=== PATIENT | female | born 1980 | race Caucasian/White ===

== ENCOUNTER 2018-04-28 17:26 | Emergency (ER) | payer SELFPAY ==
[~2018-04-28] VITALS: Ht 170.1 cm; Wt 77.1 kg
[2018-04-28 17:33] VITALS: BP 108/78
[2018-04-28] MEDS ORDERED: DOXYCYCLINE100 M3 PO ×2 (18:13→18:29)
== END 2018-04-28 18:14 | disposition home or self-care (01) ==
LOC: ED 17:26
DX: R21 Rash and other nonspecific skin eruption (principal)

== ENCOUNTER 2024-05-30 11:47 | Emergency (ER) | payer BC ==
[~2024-05-30] VITALS: Ht 167.6 cm; Wt 68.0 kg
[~2024-05-30 11:47] MED LIST: DOXYCYCLINE100 M3 PO
[2024-05-30 12:06] VITALS: BP 113/59
[2024-05-30] MEDS ORDERED: AMOX-CLAV 875-1 EACH PO (12:24)
[2024-05-30] MEDS ORDERED: Amoxicillin/Clavulanate Pota 875 MG TAB PO ONE (12:25)
== END 2024-05-30 12:30 | disposition home or self-care (01) ==
LOC: ED 11:47
DX: S61.231A Puncture wound without foreign body of left index finger without damage to nail, initial encounter (principal); W55.01XA Bitten by cat, initial encounter; Y93.89 Activity, other specified; Y92.89 Other specified places as the place of occurrence of the external cause; Y99.8 Other external cause status